=== PATIENT | female | born 1990 | race Caucasian/White ===

== ENCOUNTER 2024-11-06 18:18 | Emergency (ER) | payer OTHER ==
[2024-11-06] MEDS ORDERED: XYLOCAINE 1% HCL 20 ML MDV IJ ONE (18:19)
--- NOTE | 2024-11-06 18:55 | ERPHSYRPT ---
- History of Present Illness Time Seen by Provider: 11/06/24 18:55 Source: patient, family Exam Limitations: no limitations Physician History: This is a 34-year-old white female patient who presents with approximately 1 week history of nonproductive, dry cough and sore throat pain. In the last few days she has had left earache that is stabbing throbbing level pain. She drove herself to the emergency department. Patient states she cannot take codeine based products. It makes her deathly ill per her report. She does not have chest pain. She has no shortness of breath. She had a fever approximately 6 days ago but no fever since that time. Timing/Duration: week(s) (1), worse (2 days) Cough Quality/Degree: mild, dry cough Possible Cause: no prior episodes Modifying Factors: Improves With: coughing Associated Symptoms: cough, earache (Left side), sore throat, No chest pain/soreness, No headache, No shortness of breath Allergies/Adverse Reactions: No Known Drug Allergies Allergy (Verified 11/06/24 18:39) Travel Risk - International Travel Have you traveled outside of the country in past 3 weeks: No - Emerging Infectious Disease Are you exhibiting symptoms associated with any current EIDs: Yes Symptoms: Cough: New Onset - Review of Systems Constitutional: No Symptoms Eyes: No Symptoms Ears, Nose, & Throat: Ear Pain (Left side), Throat Pain Respiratory: Cough (Nonproductive, dry), No Dyspnea, No Wheezing Cardiac: No Chest Pain Abdominal/Gastrointestinal: No Symptoms Genitourinary Symptoms: No Symptoms Musculoskeletal: No Symptoms Skin: No Symptoms Neurological: No Symptoms Psychological: No Symptoms Endocrine: No Symptoms Hematologic/Lymphatic: No Symptoms Immunological/Allergic: No Symptoms All Other Systems: Reviewed and Negative - Past Medical History Pertinent Past Medical History: No - Nursing Vital Signs Nursing Vital Signs: Initial Vital Signs Temperature 98.7 F 11/06/24 18:19 Pulse Rate 72 11/06/24 18:19 Respiratory Rate 18 11/06/24 18:19 Blood Pressure 144/75 11/06/24 18:19 O2 Sat by Pulse Oximetry 96 11/06/24 18:19 Pain Scale Pain Intensity 10 - Physical Exam General Appearance: no apparent distress, alert, anxiety Eye Exam: PERRL/EOMI, eyes nml inspection Ears, Nose, Throat Exam: normal ENT inspection, moist mucous membranes Neck Exam: normal inspection, non-tender, supple, full range of motion Respiratory Exam: normal breath sounds, lungs clear, airway intact, No chest tenderness, No respiratory distress Cardiovascular Exam: regular rate/rhythm, normal heart sounds, normal peripheral pulses Gastrointestinal/Abdomen Exam: soft, normal bowel sounds, No tenderness Pelvic Exam: not done Rectal Exam: not done Back Exam: normal inspection, normal range of motion, No CVA tenderness, No vertebral tenderness Extremity Exam: normal inspection, normal range of motion, pelvis stable Neurologic Exam: alert, oriented x 3, cooperative, inside sales lead II-XII nml as tested, nml cerebellar function, nml station & gait, sensation nml Skin Exam: normal color, warm, dry Lymphatic Exam: No adenopathy SpO2 Interpretation: normal O2 Delivery: Room Air - Course Nursing assessment & vital signs reviewed: Yes Ordered Tests: Medication Summary Discontinued Medications Generic Name Dose Route Start Last Admin Trade Name Freq PRN Reason Stop Dose Admin Benzonatate 200 mg 11/06/24 19:35 Benzonatate 100 Mg Capsule PO 11/06/24 19:36 STAT ONE Ceftriaxone Sodium 1,000 mg 11/06/24 19:33 Ceftriaxone Sodium 1000 Mg Inj Vial IM 11/06/24 19:34 STAT ONE Methylprednisolone Sodium 0 mg 11/06/24 19:33 Succinate 125 mg/ Sterile IM 11/06/24 19:34 Water 2 ml STAT ONE Methylprednisolone Sodium Succinate Confirm 11/06/24 19:42 Methylprednis Sod Succ 125 Mg/2 Ml Vial Administered 11/06/24 19:43 Dose 125 mg .ROUTE .STK-MED ONE Sterile Water Confirm 11/06/24 19:42 Water For Injection,Sterile 10 Ml Vial Administered 11/06/24 19:43 Dose 10 ml IJ .STK-MED ONE Lab/Rad Data: Laboratory Results 11/06/24 Range/Units 18:50 Influenza Type A Ag Pending Influenza Type B Ag Pending RSV (PCR) Pending SARS-CoV-2 (PCR) Pending Group A Strep Antibody NOT DETECTED (NEGATIVE) - Progress Progress: improved, re-examined Air Movement: good Progress Note: 11/06/24 19:49 My medical decision making and the assignment of low complexity of this patient's medical issue today is based on review of the patient's past medical history, review the patient's medication list, reviewed patient drug allergy list, history present illness and physical findings on examination. The workup in this patient does not require any laboratory radiographic studies. The patient's symptoms began a week ago. Together, we decided to forego viral swabs and group A strep test. She has a cough and her lungs are clear. Together, we decided that we would treat her for upper respiratory infection. The antibiotics and steroids will cover bacterial causes of her left ear pain and sore throat as well. Differential diagnosis includes but is not limited to left otitis media, bronchitis, upper respiratory infection, pneumonia Blood Culture(s) Obtained: No Antibiotics given: Yes Counseled pt/family regarding: diagnosis, need for follow-up Medical Desision Making - Diagnostic Testing Diagnostic test were ordered, analyzed, and reviewed by me: No - Risk of complications The pt has a mod risk of morbidity or mortality based on: Need for prescription drug management - Departure Departure Disposition: Home Clinical Impression: Earache, left, Upper respiratory infection Condition: Stable Critical Care Time: No Referrals: LUIS MIGUEL REAGAN FNP [Primary Care Provider, UNKNOWN] - Follow up/PCP as directed Additional Instructions: Drink plenty of fluids. Avoid exposure to any type of smoke. Take your medications as prescribed. Call your primary care provider on 11/08/2024, to make arrangements for follow-up appointment for further evaluation management. Prescriptions: Benzonatate 200 mg PO TID PRN #10 cap PRN Reason: Cough Prednisone 10 mg [Deltasone 10 mg] 10 mg PO TID #12 tablet Azithromycin 250 mg [Zithromax 250 MG TABLET] 250 mg PO ZPACK #6 tablet
[2024-11-06 19:18] VITALS: RESP 18; TEMP 98.7
[2024-11-06 19:32] LABS: Group A Strep NOT DETECTED (NEGATIVE)
[2024-11-06 19:42] LABS: INFLUENZA A NEGATIVE (NEGATIVE); INFLUENZA B NEGATIVE (NEGATIVE); RESPIRATORY SYNCTIAL VIRUS NEGATIVE (NEGATIVE); SARS-CoV-2 Xpert Express NEGATIVE (NEGATIVE)
[2024-11-06] MEDS ORDERED: Rocephin 1000 MG INJ ONE (19:42)
[2024-11-06] MEDS ORDERED: Sterile H2O 10 ml IJ ONE (19:42)
[2024-11-06] MEDS ORDERED: solu-MEDROL ONE (19:42)
[2024-11-06] MEDS ORDERED: Tessalon Perles 100 MG PO ONE (19:42)
[2024-11-06] MEDS: Rocephin 1000 MG INJ IM ONE (19:49)
[2024-11-06] MEDS: solu-MEDROL 125 MG, Sterile H2O 10 ml 2 ML IM ONE (19:49)
[2024-11-06] MEDS: Tessalon Perles 100 MG PO ONE (19:49)
[2024-11-06 20:03] VITALS: BP 119/62; PULSE 64; O2SAT 100
== END 2024-11-06 20:09 | disposition home or self-care (01) ==
LOC: ED 18:18
DX: J06.9 Acute upper respiratory infection, unspecified (principal); H92.02 Otalgia, left ear; R05.1 Acute cough; J02.9 Acute pharyngitis, unspecified; Z79.52 Long term (current) use of systemic steroids; Z79.899 Other long term (current) drug therapy
CPT/HCPCS: 0241U; 87651; 96372; 99284; 99283; J0696; J2919; A9270-GY